=== PATIENT | male | born 1965 | race Caucasian/White ===

== ENCOUNTER → 2016-11-05 | Outpatient (CLI) | payer BC ==
[2016-11-05 19:06] LABS: Basophils % (A) 1 %; CH 31.7; Eosinophils # (A) 0.2 k/uL (0-0.7); Eosinophils % (A) 4 %; HCT 52.7 % (39.0-53.0); HDW 2.72; HGB 17.3 gm/dL (13.0-17.5); Luc # (Auto) 0.12; Luc % (Auto) 2; Lymphocytes # (A) 1.6 k/uL (1.0-4.8); Lymphocytes % (A) 27 %; MCH 30.8 pg (25.0-35.0); MCHC 32.8 g/dL (31.0-37.0); MCV 93.7 fL (80.0-100.0); Mean Platelet Volume 7.8; Monocytes # (A) 0.3 k/uL (0-1.0); Monocytes % (A) 5 %; Neutrophils # (A) 3.8 k/uL (1.3-7.7); Neutrophils % (A) 62 %; RBC 5.62 m/uL (4.30-5.90); RDW 13.1 % (11.5-15.5); WBC 6.2 k/uL (3.8-10.6); WBC (Perox) 6.23
[2016-11-05 19:08] LABS: ALT 35 U/L (21-72); AST 23 U/L (17-59); Alkaline Phosphatase 81 U/L (38-126); Anion Gap 11 mmol/L; Blood Urea Nitrogen 15 mg/dL (9-20); Calcium 10.2 mg/dL (8.4-10.2); Carbon Dioxide 29 mmol/L (22-30); Chloride 102 mmol/L (98-107); Cholesterol 247 mg/dL (<200); Glucose 88 mg/dL (74-99); HDL Cholesterol 54 mg/dL (40-60); Non-African American GFR(MDRD) >60 (>60 ml/min/1.73 sqM); Potassium 5.3 mmol/L (3.5-5.1); Sodium 142 mmol/L (137-145); Total Bilirubin 0.9 mg/dL (0.2-1.3); Total Protein 7.3 g/dL (6.3-8.2); Triglycerides 205 mg/dL (<150)
== END | disposition home or self-care (01) ==
LOC: MMGSC 09:09
PROVIDERS: ATTEND Family Medicine
DX: Z00.00 Encounter for general adult medical examination without abnormal findings (principal); E78.5 Hyperlipidemia, unspecified
CPT/HCPCS: 36415; 80053; 80061; 84439; 84443; 85025

== ENCOUNTER 2017-03-04 07:09 | Day surgery (SDC) | payer BC ==
[2017-02-26 15:59] VITALS: BMI 26.6
[~2017-03-04 07:09] MED LIST: LACTATED RINGERS 1,000 ML IV SCH; LIDOCAINE 1% 20 ML VIAL (10MG/ML) FOR IV START INTRADERMA PRN
[2017-03-04] MEDS ORDERED: LACTATED RINGERS 1,000 ML IV ONE (07:15)
[2017-03-04 07:24] VITALS: TEMP 98.6
[2017-03-04] MEDS ORDERED: LIDOCAINE 1% INJ 10MG/ML (20 ML MDV) ONE (08:10)
[2017-03-04] MEDS ORDERED: PROPOFOL 10 MG/ML 20 ML VIAL IV ONE (08:10)
[2017-03-04] MEDS ORDERED: IV FLUID CONTINUATION 1,000 ML IV ONE (08:32)
--- NOTE | 2017-03-04 08:43 | P.PCN ---
Date of Procedure: 03/04/17 Preoperative Diagnosis: Postoperative Diagnosis: Procedure(s) Performed: Procedure: Total colonoscopy. Preoperative diagnosis: Screening for neoplasia. Postoperative diagnosis: Exam essentially within normal limits. Preparation: HalfLytely prep. Sedation: Was provided by anesthesia. Brief clinical history: The patient is a 51-year-old male who is referred for this evaluation for screening for neoplasia age being his risk factor. He has no abdominal complaints, bleeding or anemia. No family history of colon cancer. This would be his first colonoscopy. Procedure: With the patient on his left lateral decubitus position and after informed consent and adequate sedation, the perianal area was inspected and it did not show any fissures or fistulas. There were no masses felt on digital rectal examination. The Olympus CFQ 160L video colonoscope was then inserted in the rectum in the usual fashion and advanced to the cecum. The preparation was good. The mucosa appeared healthy. There was a rare small diverticular orifice seen in the descending colon/proximal sigmoid, but there was no evidence of diverticulitis or strictures. No polyps or tumors were seen. I retroflexed the endoscope in the rectum before the endoscope was withdrawn. Prominent anal papilla was noted. No bleeding or other pathology. The patient tolerated the procedure well. Plan: The patient was reassured. Discussed dietary measures. He will follow up with you as planned and I recommended repeat exam in 10 years. Implants: Indications for Procedure: Operative Findings: Description of Procedure:
[2017-03-04 08:54] VITALS: RESP 18
[2017-03-04 09:16] VITALS: BP 126/87; PULSE 58
== END 2017-03-04 09:35 | disposition home or self-care (01) ==
LOC: ORWHC2ENDO 07:09
DX: Z12.11 Encounter for screening for malignant neoplasm of colon (principal); I10 Essential (primary) hypertension; Z79.899 Other long term (current) drug therapy
CPT/HCPCS: G0121; J2001; J2704

== ENCOUNTER → 2017-11-23 | Outpatient (CLI) | payer BC ==
[2017-11-23 18:51] LABS: ALT 33 U/L (21-72); AST 22 U/L (17-59); Albumin 4.3 g/dL (3.5-5.0); Alkaline Phosphatase 81 U/L (38-126); Anion Gap 10 mmol/L; Blood Urea Nitrogen 16 mg/dL (9-20); Calcium 9.6 mg/dL (8.4-10.2); Carbon Dioxide 26 mmol/L (22-30); Chloride 106 mmol/L (98-107); Cholesterol 239 mg/dL (<200); Glucose 89 mg/dL (74-99); HDL Cholesterol 49 mg/dL (40-60); LDL Cholesterol,Calculated 122 mg/dL (0-99); Potassium 4.7 mmol/L (3.5-5.1); Sodium 142 mmol/L (137-145); Total Bilirubin 0.7 mg/dL (0.2-1.3); Total Protein 6.7 g/dL (6.3-8.2); Triglycerides 338 mg/dL (<150)
[2017-11-23 19:00] LABS: Basophils % (A) 1 %; Eosinophils # (A) 0.3 k/uL (0-0.7); Eosinophils % (A) 4 %; HCT 49.4 % (39.0-53.0); HGB 15.7 gm/dL (13.0-17.5); Lymphocytes # (A) 1.7 k/uL (1.0-4.8); Lymphocytes % (A) 25 %; MCH 30.2 pg (25.0-35.0); MCHC 31.8 g/dL (31.0-37.0); Mean Platelet Volume 8.2; Monocytes # (A) 0.5 k/uL (0-1.0); Monocytes % (A) 7 %; Neutrophils # (A) 4.2 k/uL (1.3-7.7); Neutrophils % (A) 61 %; Platelet Count 280 k/uL (150-450); RDW 12.8 % (11.5-15.5); WBC 6.8 k/uL (3.8-10.6)
[2017-11-23 19:21] LABS: PSA Annual Screen 1.14 ng/mL (0.00-4.00)
== END | disposition home or self-care (01) ==
LOC: MMGSC 11:31
PROVIDERS: ATTEND Family Medicine
DX: Z00.00 Encounter for general adult medical examination without abnormal findings (principal); Z12.5 Encounter for screening for malignant neoplasm of prostate
CPT/HCPCS: 84439; 80053; 80061; 84443; 85025; 36415; G0103

== ENCOUNTER → 2018-01-13 | Outpatient (CLI) | payer BC ==
--- NOTE | 2018-01-13 16:42 | CONS ---
CONSULTATION DATE OF SERVICE: 01/13/2018 This patient is a 52-year-old gentleman who has been evaluated in the sleep center for possible obstructive sleep apnea-hypopnea syndrome. HISTORY OF PRESENT ILLNESS/SLEEP-WAKE EVALUATION: Patient's usual sleep schedule on working days is from 9:30 p.m. to 5:10 a.m. and on weekends from about 10:30 p.m. until about 6 or 7:30 a.m. Usually no problems with falling asleep, although patient has a TV set in the bedroom. He sleeps in different positions with his with loud snoring and possible episodes of stopped breathing during sleep, according to his . He wakes up from sleep several times with 2 episodes of nocturia at night. In the morning the patient wakes up tired, has difficulties paying attention, falling asleep during the day. [place] Sleepiness Scale is significantly increased to 12. Positive history of problems with memory, concentration, irritability, anxiety. PAST MEDICAL HISTORY: 1. Hypertension. 2. Anxiety. PAST SURGICAL HISTORY: 1. Sinus surgery. 2. Cervical spine surgery. 3. Hernia repair surgery on the left side. MEDICATIONS: 1. Zoloft. 2. Toprol. SOCIAL HISTORY: Negative for smoking. Alcohol consumption occasional. FAMILY HISTORY: Hypertension, heart problems, hyperlipidemia, arthritis, snoring, nasal polyps. REVIEW OF SYMPTOMS: Awakenings from sleep, sleepiness during the day. PHYSICAL EXAMINATION: gentleman without distress. VITAL SIGNS: BP 122/85, HR 62, RR 16, height 5 feet 6 inches, weight 172, BMI 27.7, temperature 98.5, oxygen saturation at room air 95%. HEENT: PERRLA, EOMI. Evaluation of oropharynx showed tongue protrudes midline; extremely low position of soft palate. Slight restriction of nasal breathing. NECK: Neck measures 15 inches in circumference. Supple. No JVD. Thyroid is not palpable. LUNGS: Clear to percussion and to auscultation. Good air exchange. No wheezing or rhonchi. HEART: S1, S2 regular. No murmurs, gallops or rubs. ABDOMEN: Soft and nontender. Bowel sounds are present. No organomegaly appreciated. EXTREMITIES : No clubbing or cyanosis. E BUSINESS CONSULTANT: Awake, alert, and oriented X3. Cranial nerves 2 to 7 intact. There is no fasciculation or atrophy. noted. No focal deficits observed. IMPRESSION: 1. Loud snoring, possible witnessed episodes of stopped breathing during sleep, low position of soft palate, awakenings from sleep, sleepiness during the day, [place] Sleepiness Scale increased to 12; obstructive sleep apnea-hypopnea syndrome. 2. Overweight; body mass index 27.7. 3. History of anxiety. 4. Hypertension. 5. Status post sinus surgery. 6. Status post cervical spine fusion. 7. Status post hernia repair on the left side. PLAN: 1. Home sleep apnea test for confirmation of normal respiration during sleep. 2. Following plan after reviewing sleep test. 3. Sleep hygiene with regular time in bed for at least 8 hours. 4. No driving if feeling any sleepiness. 5. Preferable position during sleep is on the side. Thank you very much for referring this patient for consultation. Sincerely, Alf Huitron MD, PhD, FAASM Diplomat of [place] [employer] [place] [employer] Core Man of [facility] [place] MMODL / IJN: [id number] /
== END | disposition home or self-care (01) ==
LOC: SLEEP 15:19
PROVIDERS: ATTEND Internal Medicine
DX: G47.33 Obstructive sleep apnea (adult) (pediatric) (principal); E66.3 Overweight; F41.9 Anxiety disorder, unspecified; I10 Essential (primary) hypertension; Z68.27 Body mass index [BMI] 27.0-27.9, adult; Z98.890 Other specified postprocedural states; Z98.1 Arthrodesis status; Z79.899 Other long term (current) drug therapy
CPT/HCPCS: 99211

== ENCOUNTER → 2018-04-21 | Outpatient (CLI) | payer BC ==
--- NOTE | 2018-04-21 11:55 | SFUN ---
SLEEP CENTER FOLLOW UP NOTE DATE OF SERVICE: 04/21/2019 This 52-year-old gentleman had been followed in the sleep center for treatment of severe obstructive sleep apnea-hypopnea syndrome. Recently patient had home sleep apnea test which showed apnea-hypopnea index 55.3 with oxygen desaturation to 80%. Then the patient had CPAP titration and during titration his respiration was on full control with a pressure of 12 cm of water. Subsequently, he received his CPAP unit, started to use it and today is his first visit after he started to use CPAP machine. Patient is able to use CPAP equipment every night without problems. He feels better during the day and he sleeps better. Before starting to use CPAP, he woke up with nocturia about 3 times. Now he sleeps through the whole night without any awakenings. [place] Sleepiness Scale today is 3. MEDICATIONS: Zoloft, Toprol. I checked the patient's CPAP unit. CPAP pressure is 12 cm of water. Usage is 29/30 nights and 26/30 nights more than 4 hours, average usage 5.4 hours. Leak is up to 40 L/minute. Apnea-hypopnea index in normal range 2.2. The patient explained that he changed the size of nasal pillows and after that, leak significantly decreased. PHYSICAL EXAMINATION: During physical exam, patient in no distress. VITAL SIGNS: BP 130/83, HR 55, RR 16, weight 175.0, temp 97.9, oxygen saturation room air 96% normal. HEENT: PERRLA, EOMI. Oropharynx moderately low position of soft palate. NECK: Supple, no JVD. Thyroid is not palpable. LUNGS: Clear to percussion and to auscultation. Good air exchange. No wheezing or rhonchi. HEART: S1, S2 regular. No murmurs, gallops, or rubs. ABDOMEN: Slightly obese. EXTREMITIES: No clubbing or cyanosis. SHIFT ENGINEER: Awake, alert, and oriented X3. Cranial nerves 2 to 7 intact. There is no fasciculation or atrophy. noted. No focal deficits observed. IMPRESSION: 1. Severe obstructive sleep apnea-hypopnea syndrome; apnea-hypopnea index 55.3 with oxygen desaturation to 80% on full control with CPAP at 12 cm of water. Patient demonstrated great compliance with treatment benefitting from treatment. 2. Hypertension. 3. History of anxiety. 4. Status post sinus surgery. 5. Status post cervical spine fusion surgery. 6. Status post hernia repair on the left side. PLAN: 1. Patient will continue to use his CPAP equipment every night. We discussed possibility to use chin strap. Patient has chinstrap and he will use in case if he will continue to have any significant leak from his mask. 2. We will follow with prescription for all necessary CPAP supplies including nasal pillows, tube, filters. 3. Watching weight. 4. No driving if feeling any sleepiness. 5. Sleep hygiene with regular time in bed for at least 8 hours. 6. Followup visit in one year or earlier if patient has any problems. Thank you very much for allowing me to participate in management of your patient. Sincerely, Alf Huitron MD, PhD, FAASM Diplomat of [place] [employer] [place] [employer] [employer] Field Technician of [facility] [place] MMODL / ELLIEN: [id number] /
== END ==
LOC: SLEEP 10:17
PROVIDERS: ATTEND Internal Medicine
DX: G47.33 Obstructive sleep apnea (adult) (pediatric) (principal); I10 Essential (primary) hypertension; F41.9 Anxiety disorder, unspecified; Z98.890 Other specified postprocedural states; Z98.1 Arthrodesis status; Z99.89 Dependence on other enabling machines and devices; Z79.899 Other long term (current) drug therapy

== ENCOUNTER → 2019-05-18 | Outpatient (CLI) | payer BC ==
--- NOTE | 2019-05-18 20:58 | PN ---
PROGRESS NOTE DATE OF SERVICE: 05/18/2019 This patient is a 53-year-old gentleman who has been followed in Sleep Center for treatment of obstructive sleep apnea-hypopnea syndrome. Patient continues to use his CPAP equipment every night for the whole night without any significant problems related to mask fitting, pressure or humidification. No snoring with the machine. [place] Sleepiness Scale today is only 2. I checked his CPAP unit. CPAP pressure is 12 cm of water. Usage is every night, and 28/30 nights for more than 4 hours, with average usage 6.0 hours. Leak is quite high at 29 L/minute, but at the same time apnea-hypopnea index is only 1.0, which is absolutely perfect. MEDICATIONS: 1. Zoloft. 2. Toprol. PHYSICAL EXAMINATION: GENERAL: A pleasant patient in no distress. VITAL SIGNS: BP 138/88, HR 66, RR 16, height 5 feet 6 inches, weight 180 pounds. Body mass index 29. Temperature 98.2, oxygen saturation at room air 94%. HEENT: PERRLA, EOMI. Evaluation of oropharynx showed tongue protrudes midline. Low position of soft palate. Mallampati III. NECK: Supple. No JVD. Thyroid is not palpable. LUNGS: Clear to percussion and to auscultation. Good air exchange. No wheezing or rhonchi. HEART: S1, S2 regular. No murmurs, gallops or rubs. ABDOMEN: Soft and nontender. Bowel sounds are present. No organomegaly. EXTREMITIES: No clubbing or cyanosis. BOOM CONVEYOR OPERATOR: Awake, alert, and oriented X3. Cranial nerves 2 to 7 intact. There is no fasciculation or atrophy. noted. No focal deficits observed. IMPRESSION: 1. Severe obstructive sleep apnea-hypopnea syndrome; apnea-hypopnea index by results of the sleep study 55.3, under full control with CPAP at 12 cm of water. Patient demonstrated practically 100% compliance with treatment, benefitting from treatment. 2. History of anxiety. 3. Hypertension. 4. Status post sinus surgery. 5. Status post cervical spine fusion surgery. 6. Status post hernia repair on the left side. PLAN: 1. Patient will continue to use CPAP equipment every night for the whole night. 2. I will maintain all necessary prescriptions for CPAP supplies, including nasal pillows, AirFit P10 medium size, heated tube, filters. 3. Watching weight. 4. Sleep hygiene with regular time in bed for at least 8 hours. 5. No driving if feeling any sleepiness. 6. Follow-up visit in one year, or earlier if the patient has any problems. Thank you very much for allowing me to participate in the management of your patient. Sincerely, Alf Huitron MD, PhD, FAASM Diplomat of [place] [employer] Specialties [place] Board of Internal Medicine [employer] Supervisor of [facility] [place] MMODL / IJN: [id number] /
== END | disposition home or self-care (01) ==
LOC: SLEEP 15:47
PROVIDERS: ATTEND Internal Medicine
DX: G47.33 Obstructive sleep apnea (adult) (pediatric) (principal); Z79.899 Other long term (current) drug therapy; Z99.89 Dependence on other enabling machines and devices

== ENCOUNTER → 2021-08-13 | Outpatient (CLI) | payer BC ==
--- NOTE | 2021-08-14 08:28 | SFUN ---
SLEEP CENTER FOLLOW UP NOTE DATE OF SERVICE: 08/13/2021 This 56-year-old gentleman has been followed in Sleep Center for treatment of obstructive sleep apnea-hypopnea syndrome. I have not seen this patient since 2019. Patient continues to use his CPAP equipment every night for the whole night. [place] Sleepiness Scale today is 3, which is normal. I checked his CPAP unit. CPAP pressure is 12 cm of water. Usage is 30/30 nights for more than 4 hours, average 6.7 hours per night. Leak is 30 L/minute, which is slightly high. Apnea-hypopnea index is 1.0, which is perfect. MEDICATIONS: 1. Metoprolol 100 mg once a day. 2. Zoloft 100 mg once a day. PHYSICAL EXAMINATION: GENERAL: Pleasant patient in no distress. VITAL SIGNS: BP 130/85, HR 75, RR 15, height 5 feet 6-2/3 inches, weight 186 pounds, body mass index 29.4, which is about the same as during the last visit. Temperature 97.5, oxygen saturation at room air 94%. HEENT: PERRLA, EOMI, evaluation of oropharynx showed tongue protrudes midline. Low position of soft palate; Mallampati III. NECK: Supple, no JVD. Thyroid is not palpable. LUNGS: Clear to percussion and to auscultation. Good air exchange. No wheezing or rhonchi. HEART: S1, S2 regular. No murmurs, gallops, or rubs. ABDOMEN: Soft and nontender. Bowel sounds are present. No organomegaly appreciated. EXTREMITIES: No clubbing or cyanosis. TIRE SERVICE TECHNICIAN: Awake, alert, and oriented X3. Cranial nerves 2 to 7 intact. There is no fasciculation or atrophy. noted. No focal deficits observed. IMPRESSION: 1. Severe obstructive sleep apnea-hypopnea syndrome; apnea-hypopnea index 55.3. Patient demonstrated 100% compliance with treatment, benefitting from treatment. Normal respiration on CPAP. 2. Hypertension. 3. History of anxiety. 4. Status post sinus surgery. 5. Status post cervical spine fusion surgery. 6. Status post hernia repair on the left side. PLAN: 1. Patient will continue to use PAP equipment every night for the whole night. 2. Sleep hygiene with regular time in bed for at least 7-1/2 to 8 hours. 3. Precautions related to driving. No driving if feeling sleepiness. 4. I will maintain all necessary prescription for PAP supplies including mask, tube, filters. 5. Watching weight. 6. Follow-up visit in 6 months or earlier if patient has any problems. Thank you very much for allowing me to participate in the management of your patient. Sincerely, Alf Huitron MD, PhD, FAASM Diplomat of [place] [employer] Sleep Medicine Board of [place] [employer] of Internal Medicine Authorization Rep of [facility] [place] MMODL / IJN: [id number] /
== END | disposition home or self-care (01) ==
LOC: SLEEP 14:57
PROVIDERS: ATTEND Internal Medicine
DX: G47.33 Obstructive sleep apnea (adult) (pediatric) (principal); I10 Essential (primary) hypertension; Z86.69 Personal history of other diseases of the nervous system and sense organs; Z98.890 Other specified postprocedural states

== ENCOUNTER → 2022-06-18 | Outpatient (CLI) | payer BC ==
--- NOTE | 2022-06-18 14:17 | P.PN ---
Subjective DATE: 06/18/2022 FOLLOW UP VISIT. Patient with obstructive sleep apnea hypopnea syndrome return to sleep center for follow-up visit. Information from previous visit have been reviewed. Patient is using PAP equipment every night for the whole night, getting PAP supplies in time. The patient does not have significant problems with the mask, PAP unit and humidification. [place] sleepiness scale is 2. I checked PAP unit. PAP unit pressure 12 cm H2O. Usage is 100 % for more then 4 hours, average 5.9 hours per night. Leak is 32 l/m, which is in acceptable range. Apnea Hypopnea Index is 0.9, which is normal. MEDICATIONS:1. Metoprolol 100 mg once a day During physical exam: GENERAL: A pleasant patient without any distress. VITAL SIGNS: BP 125/75, HR 64, RR 16 , weight 184.2, temperature 97, oxygen saturation at room air 97 % . HEENT: PERRLA, EOMI.low position of soft palate, Mallapati 3 . NECK: Supple. No JVD. LUNGS: Clear to percussion and to auscultation. Good air exchange. No wheezing or rhonchi. HEART: S1, S2 regular. ABDOMEN: Soft and nontender.[] EXTREMITIES: No clubbing or cyanosis. ACQUISITION ANALYST: Awake, alert, and oriented x3. No focal deficit. Impressions: 1. Obstructive sleep apnea-hypopnea syndrome in severe range, I regional apnea- hypopnea index 55.3. Patient demonstrated great compliance with treatment, benefiting from treatment. Normal respirations CPAP 2. Hypertension. 3. History of anxiety. 4. Status post cervical spine fusion surgery. 5. Status post sinus surgery. 6. Status post hernia repair on the left side. Plan: 1. Continue using PAP equipment every night for the whole night. 2. To change air filter at least 1-2 times per month. 3. PAP unit should stay lower then position of the head. 4. Advised patient to remove all remaining water from humidifier canister daily and make it dry after each usage. Refill canister with fresh distilled water be fore each usage. 5. Sleep hygiene with regular time in bed for at least 8 hours. 6. Precautions related to driving. No driving if feel any sleepiness. 7. I will maintain prescription for PAP supplies including mask, tube, filters. 8. Follow up visit in 6 months or earlier if patient has any problems. 9. Watching weight. Thank you very much for allowing me to participate in the management of your patient. Alf Huitron MD, PhD, FAASM. Diplomat of [place] Board of Sleep Medicine, Sleep Medicine Board by [place] Board [employer] Internal Medicine Network Architect Manager of [facility] [place]
== END | disposition home or self-care (01) ==
LOC: SLEEP 13:56
PROVIDERS: ATTEND Internal Medicine
DX: G47.33 Obstructive sleep apnea (adult) (pediatric) (principal); I10 Essential (primary) hypertension; F41.9 Anxiety disorder, unspecified; Z98.890 Other specified postprocedural states
CPT/HCPCS: 99212

== ENCOUNTER → 2023-06-23 | Outpatient (CLI) | payer BC ==
--- NOTE | 2023-06-23 10:57 | P.PN ---
Subjective DATE: 06/23/2023 FOLLOW UP VISIT. Patient with obstructive sleep apnea hypopnea syndrome return to sleep center for follow-up visit. Information from previous visit have been reviewed. Patient is using PAP equipment every night for the whole night, getting PAP supplies in time. The patient does not have significant problems with the mask, PAP unit and humidification. [place] sleepiness scale is, which is normal. I checked information from PAP unit. PAP unit pressure 10 cm H2O. Usage is 100 % for more then 4 hours, average 6.2 hours per night. Leak is 16 l/m, which is in acceptable range. Apnea Hypopnea Index is 0.9, which is normal. MEDICATIONS:1. Metoprolol 100 mg once a day 2. Zoloft 100 mg once a day During physical exam: GENERAL: A pleasant patient without any distress. VITAL SIGNS: BP 127/85, HR 60, RR 16, weight 182.6, temperature 98.2, oxygen saturation at room air 97 % . HEENT: PERRLA, EOMI.low position of soft palate, Mallapati 3 . NECK: Supple. No JVD. LUNGS: Clear to percussion and to auscultation. Good air exchange. No wheezing or rhonchi. HEART: S1, S2 regular. ABDOMEN: Soft and nontender.[] EXTREMITIES: No clubbing or cyanosis. SHIPPING HAND: Awake, alert, and oriented x3. No focal deficit. Impressions: 1. Obstructive sleep apnea-hypopnea syndrome. Patient demonstrated great compliance with treatment, benefiting from treatment. 2. Hypertension. 3. Anxiety. 4. Status post sinus surgery. 5. Status post cervical spine fusion surgery. 6. Status post hernia repair on the left side. Plan: 1. Continue using PAP equipment every night for the whole night. 2. To change air filter at least 1-2 times per month. 3. PAP unit should stay lower then position of the head. 4. Advised patient to remove all remaining water from humidifier canister daily and make it dry after each usage. Refill canister with fresh distilled water before each usage. 5. Sleep hygiene with regular time in bed for at least 8 hours. 6. Precautions related to driving. No driving if feel any sleepiness. 7. I will maintain prescription for PAP supplies including mask, tube, filters. 8. Watching weight. 9. Follow up visit in 6 months or earlier if patient has any problems. Thank you very much for allowing me to participate in the management of your pa tient. Alf Huitron MD, PhD, FAASM. Diplomat of [place] [employer] Sleep Medicine, Sleep Medicine Board by [place] [employer] Medicine Regional Guide of [facility] [place]
== END ==
LOC: 3 N SLEEP 10:14
PROVIDERS: ATTEND Internal Medicine
DX: G47.33 Obstructive sleep apnea (adult) (pediatric) (principal); F41.9 Anxiety disorder, unspecified; I10 Essential (primary) hypertension; Z79.899 Other long term (current) drug therapy; Z98.1 Arthrodesis status; Z98.890 Other specified postprocedural states; Z99.89 Dependence on other enabling machines and devices
CPT/HCPCS: 99212

== ENCOUNTER 2024-05-13 21:25 | Emergency (ER) | payer BC ==
[2024-05-13] MEDS ORDERED: SODIUM CHLORIDE 0.9% 1,000 ML BAG ONE (22:15)
[2024-05-13] MEDS ORDERED: KETOROLAC 15 MG/ML 1 ML VIAL ONE (23:17)
--- NOTE | 2024-06-13 13:59 | CT ---
EXAM: CT Abdomen and Pelvis With Intravenous Contrast CLINICAL HISTORY: epigastric pain. No other history or surgical history TECHNIQUE: Axial computed tomography images of the abdomen and pelvis with intravenous contrast. CTDI is 19.4 mGy and DLP is 990.8 mGy-cm. This CT exam was performed using one or more of the following dose reduction techniques: automated exposure control, adjustment of the mA and/or kV according to patient size, and/or use of iterative reconstruction technique. COMPARISON: No relevant prior studies available. FINDINGS: Lung bases:Unremarkable. No mass. No consolidation. ABDOMEN: Liver:Unremarkable. No mass. Gallbladder and bile ducts:Unremarkable. No calcified stones. No ductal dilation. Pancreas:Unremarkable. No mass. No ductal dilation. Spleen:Unremarkable. No splenomegaly. Adrenals:Unremarkable. No mass. Kidneys and ureters:Unremarkable. No solid mass. No hydronephrosis. Stomach and bowel:Duodenal diverticulum.. No obstruction. No mucosal thickening. PELVIS: Appendix:No findings to suggest acute appendicitis. Bladder:Unremarkable. No mass. Reproductive:Unremarkable as visualized. ABDOMEN and PELVIS: Intraperitoneal space:Unremarkable. No free air. No significant fluid collection. Bones/joints:No acute fracture. No dislocation. Severe degenerative disc disease at L4-L5. Soft tissues:Unremarkable. Vasculature:Unremarkable. No abdominal aortic aneurysm. Lymph nodes:Unremarkable. No enlarged lymph nodes. IMPRESSION: No acute intra-abdominal process. Radiologist: Xavier Renae M.D. Electronically Signed: 05/14/24 04:39 Study ready at 03:15 and initial results transmitted at 04:39 Results also transmitted to Film Room, Film Room @ [phone] (Fax) [facility]
== END 2024-05-14 05:50 | disposition home or self-care (01) ==
LOC: EC 21:25
DX: K92.1 Melena (principal)
CPT/HCPCS: 74177; 96361; 96374; 99284